=== PATIENT | male | born 1965 | race Caucasian/White ===

== ENCOUNTER 2016-08-16 17:26 | Emergency (ER) | payer OTHER ==
[~2016-08-16] VITALS: Ht 182.9 cm; Wt 63.6 kg
[~2016-08-16 17:26] MED LIST: ALBU8.5H6 IH; ALPR1TAB2 PO; AMLO10TA2 PO; AMLO5TAB2 PO; CARV25TA2 PO; ESCI20TA PO; FLUT1DIS IH; LAMO200T3 PO; LATA2.5D2 OP; MIRT45TA3 PO; OXYC-323 PO; OXYC5CAP PO; PANT40TA3 PO; PHEN177S7 PO; PRAM0.255 PO; PRED20TA PO; QUET100T4 PO; TRAZ50TA15 PO; insulin pump
--- NOTE | 2016-08-16 18:22 | ED.ADGEN ---
Past History Past Medical History: Anxiety, COPD, Depression, Diabetes, Hypertension, Liver Disease, Pancreatitis, Renal Disease, Renal Failure Past Surgical History: Cholecystectomy, Spleenectomy, Other Smoking: Chew Alcohol Use: None Drug Use: None Adult General Chief Complaint Chief Complaint Hypoglycemia [facility] HPI Patient is a 51 year old male who presents with hypoglycemia. According to patient he has a history of pancreas cancer and had part of his pancreas and spleen removed in February since that he's lost about 25 pounds. He does wear an insulin pump and gets himself bolus injections based on what he eats.. He states that EMS found him with a glucose of 35. He was found by his significant other is not responding in bed at 4:30 pm. He was given glucagon, an amp of D50, and the insulin pump was removed, and the patient was transported to the hospital. He denies any fevers chills or recent illness, abdominal pain or other concerns. 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 He does have a home health nurse that comes in to check on him. EMS did take off his insulin pump and leave it at home. Review of Systems Review of Systems Constitutional: Denies fever or chills [] Eyes: Denies change in visual acuity, redness, or eye pain [] HENT: Denies nasal congestion or sore throat [] Respiratory: Denies cough or shortness of breath [] Cardiovascular: No additional information not addressed in HPI [] GI: Denies abdominal pain, nausea, vomiting, bloody stools or diarrhea [] : Denies dysuria or hematuria [] Musculoskeletal: Denies back pain or joint pain [] Integument: Denies rash or skin lesions [] Neurologic: Denies headache, focal weakness or sensory changes [] Endocrine: Denies polyuria or polydipsia [] Current Medications Current Medications Current Medications Medications (Trade) Dose Ordered Sig/Keiry Start Time Stop Time Status Last Admin Dose Admin Sodium Chloride 1,000 ml @ 1,000 mls/hr 1X ONCE 08/16/16 19:00 08/16/16 20:00 DC 08/16/16 19:00 1,000 MLS/HR Allergies Allergies Allergies Coded Allergies Type Severity Reaction Last Updated Verified Sulfa (Sulfonamide Antibiotics) Allergy Intermediate 08/16/16 Yes lisinopril Allergy Intermediate 08/16/16 Yes Physical Exam Physical Exam Constitutional: Well developed, well nourished, no acute distress, non-toxic appearance. [] HENT: Normocephalic, atraumatic, bilateral external ears normal, oropharynx moist, no oral exudates, nose normal. [] Eyes: PERRLA, EOMI, conjunctiva normal, no discharge. [] Neck: Normal range of motion, no tenderness, supple, no stridor. [] Cardiovascular:Heart rate regular rhythm, no murmur [] Lungs & Thorax: Bilateral breath sounds clear to auscultation [] Abdomen: Bowel sounds normal, soft, no tenderness, no masses, no pulsatile masses. Well-healed midline incision. Skin: Warm, dry, no erythema, no rash. [] Back: No tenderness, no CVA tenderness. [] Extremities: No tenderness, no cyanosis, no clubbing, ROM intact, no edema. [] Neurologic: Alert and oriented X 3, normal motor function, normal sensory function, no focal deficits noted. [] Psychologic: Affect normal, judgement normal, mood normal. [] Current Patient Data Vital Signs Vital Signs Date Time Temp Pulse Resp B/P (MAP) Pulse Ox O2 Delivery O2 Flow Rate FiO2 08/16/16 18:55 97.6 86 16 98 Room Air Lab Results Laboratory Tests Test 08/16/16 18:00 08/16/16 19:00 08/16/16 20:05 White Blood Count 8.2 x10^3/uL (4.0-11.0) Red Blood Count 4.64 x10^6/uL (4.30-5.70) Hemoglobin 14.4 g/dL (13.0-17.5) Hematocrit 43.2 % (39.0-53.0) Mean Corpuscular Volume 93 fL (79-100) Mean Corpuscular Hemoglobin 31 pg (25-35) Mean Corpuscular Hemoglobin Concent 33 g/dL (31-37) Red Cell Distribution Width 13.9 % (11.5-14.5) Platelet Count 290 x10^3/uL (140-400) Neutrophils (%) (Auto) 58 % (31-73) Lymphocytes (%) (Auto) 27 % (24-48) Monocytes (%) (Auto) 12 % (0-9) H Eosinophils (%) (Auto) 2 % (0-3) Basophils (%) (Auto) 1 % (0-3) Neutrophils # (Auto) 4.8 x10^3uL (1.8-7.7) Lymphocytes # (Auto) 2.2 x10^3/uL (1.0-4.8) Monocytes # (Auto) 1.0 x10^3/uL (0.0-1.1) Eosinophils # (Auto) 0.2 x10^3/uL (0.0-0.7) Basophils # (Auto) 0.1 x10^3/uL (0.0-0.2) Platelet Estimate Adequate (ADEQUATE) Large Platelets Present Giant Platelets Present Pappenheimer Bodies Present [place]-Trimont Bodies Present [place] Cells Present Acanthocytes (Spur Cells) Present Sodium Level 138 mmol/L (136-145) Potassium Level 3.8 mmol/L (3.5-5.1) Chloride Level 98 mmol/L (98-107) Carbon Dioxide Level 32 mmol/L (21-32) Anion Gap 8 (6-14) Blood Urea Nitrogen 13 mg/dL (8-26) Creatinine 1.1 mg/dL (0.7-1.3) Estimated GFR (Cockcroft-Gault) 70.9 BUN/Creatinine Ratio 12 (6-20) Glucose Level 229 mg/dL (70-99) H Calcium Level 9.0 mg/dL (8.5-10.1) Total Bilirubin 2.3 mg/dL (0.2-1.0) H Aspartate Amino Transferase (AST) 47 U/L (15-37) H Alanine Aminotransferase (ALT) 86 U/L (16-63) H Alkaline Phosphatase 283 U/L (46-116) H Total Protein 7.3 g/dL (6.4-8.2) Albumin 3.6 g/dL (3.4-5.0) Albumin/Globulin Ratio 1.0 (1.0-1.7) Urine Collection Type Unknown Urine Color Yellow Urine Clarity Clear Urine pH 5.0 Urine Specific [place] <=1.005 Urine Protein Neg (NEG-TRACE) Urine Glucose (UA) 250 mg/dL (NEG) Urine Ketones (Stick) Neg mg/dL (NEG) Urine Blood Neg (NEG) Urine Nitrite Neg (NEG) Urine Bilirubin Neg (NEG) Urine Urobilinogen Dipstick 0.2 mg/dL (0.2 mg/dL) Urine Leukocyte Esterase Neg (NEG) Urine RBC Rare /HPF (0-2) Urine WBC Occ /HPF (0-4) Urine Squamous Epithelial Cells None /LPF Urine Bacteria 0 /HPF (0-FEW) Urine Hyaline Casts Few /HPF Urine Mucus Slight /LPF Glucose (Fingerstick) 327 mg/dL (70-99) H EKG EKG [] Radiology/Procedures Radiology/Procedures [] Course & Med Decision Making Course & Med Decision Making Pertinent Labs and Imaging studies reviewed. (See chart for details) Patient's labs show elevated total bilirubin however he states this is been normal for him. He has an insulin pump and he states recently was increased 0.75 as a basal rate, he is instructed to go back to his previous setting which was 0.6. He also states he usually boluses himself at nighttime since his last meal the day is his largest meal. However he's been complaining of diarrhea after this therefore I will encourage him not to bolus himself since he's having so much diarrhea. He also has not been checking his sugars as frequently as directed is instructed to check them every before meals daily at bedtime. He is to call and follow-up with him regarding his diarrhea. I encouraged him to get stool samples to his GI doc as they are ordered but he doesn't have the containers as of yet. He is instructed to return the ER for worsening low blood sugars, feeling of weakness, or other concerns. He and his significant other are agreeable plan and being discharged in stable condition this time. Of note he was watched for 2 hours and fed and did not have any hypoglycemic incidents here in the ER. Final Impression Final Impression Hypo-glycemia Problems: Dragon Disclaimer Dragon Disclaimer This electronic medical record was generated, in whole or in part, using a voice recognition dictation system. TERENCE DONNELLY MD August 16, 2016 18:22
[2016-08-16 18:30] LABS: BASO # 0.1 x10^3/uL (0.0-0.2); BASO % 1 % (0-3); EOS # 0.2 x10^3/uL (0.0-0.7); EOS % 2 % (0-3); HEMATOCRIT 43.2 % (39.0-53.0); HEMOGLOBIN 14.4 g/dL (13.0-17.5); LYMPH # 2.2 x10^3/uL (1.0-4.8); LYMPH % 27 % (24-48); MEAN CORPUSCULAR HEMOGLOBIN 31 pg (25-35); MEAN CORPUSCULAR HGB CONC 33 g/dL (31-37); MEAN CORPUSCULAR VOLUME 93 fL (79-100); MONO % 12 % (0-9); NEUT # 4.8 x10^3uL (1.8-7.7); NEUT % 58 % (31-73); PLATELET COUNT 290 x10^3/uL (140-400); RED BLOOD COUNT 4.64 x10^6/uL (4.30-5.70); RED CELL DISTRIBUTION WIDTH 13.9 % (11.5-14.5); WHITE BLOOD COUNT 8.2 x10^3/uL (4.0-11.0)
[2016-08-16 18:35] LABS: ALBUMIN 3.6 g/dL (3.4-5.0); CREATININE 1.1 mg/dL (0.7-1.3); GFR 70.9; POTASSIUM 3.8 mmol/L (3.5-5.1); TOTAL PROTEIN 7.3 g/dL (6.4-8.2)
[2016-08-16 18:36] LABS: TOTAL BILIRUBIN 2.3 mg/dL (0.2-1.0)
[2016-08-16] MEDS ORDERED: IV NORMAL SALINE 1,000ML 1,000 ML IV ONE (19:00)
[2016-08-16 19:34] LABS: BILIRUBIN,URINE NEG (NEG); CLARITY,URINE CLEAR; COLOR,URINE YELLOW; GLUCOSE,URINE 250 mg/dL (NEG); NITRITE,URINE NEG (NEG); UROBILINOGEN,URINE 0.2 mg/dL (0.2 mg/dL)
[2016-08-16 19:35] LABS: BACTERIA,URINE 0 /HPF (0-FEW); RBC,URINE RARE /HPF (0-2); WBC,URINE OCC /HPF (0-4)
[2016-08-16 19:36] LABS: HYALINE CASTS, URINE FEW /HPF
[2016-08-16 19:45] VITALS: BP 165/94
[2016-08-16 20:06] LABS: ACANTHOCYTES PRESENT; BURR CELLS PRESENT; HOWELL-JOLLY BODIES PRESENT; PAPPENHEIMER BODIES PRESENT; PLT ESTIMATE ADEQUATE (ADEQUATE)
== END 2016-08-16 20:15 | disposition home or self-care (01) ==
LOC: ER 17:26
DX: E11.649 Type 2 diabetes mellitus with hypoglycemia without coma (principal); J44.9 Chronic obstructive pulmonary disease, unspecified; I12.9 Hypertensive chronic kidney disease with stage 1 through stage 4 chronic kidney disease, or unspecified chronic kidney disease; N18.9 Chronic kidney disease, unspecified; Z90.81 Acquired absence of spleen; Z88.2 Allergy status to sulfonamides; Z88.8 Allergy status to other drugs, medicaments and biological substances; F17.220 Nicotine dependence, chewing tobacco, uncomplicated
CPT/HCPCS: 36415; 80053; 81001; 82947; 85008; 85027; 96360; 99284-25; J7030